=== PATIENT | female | born 1975 | race African-American/Black ===

== ENCOUNTER 2020-10-18 11:47 | Inpatient (IN) | payer OTHER ==
[~2020-10-18] VITALS: Ht 180.3 cm; Wt 100.7 kg
[2020-10-18 12:05] VITALS: BP 120/65
[2020-10-18 12:35] LABS: HEMATOCRIT 34.8 % (37.0-47.0); HEMOGLOBIN 11.9 gm/dL (12.0-15.0); MCH 30.5 pg (26.0-34.0); MCHC 34.3 g/dL (28.0-37.0); MPV 7.6 fl. (7.2-11.1); NUCLEATED RBCS 0 /100WBC; PLATELET COUNT* 278 thou/uL (150-400); RBC 3.91 mil/uL (4.20-5.00); RDW-CV 12.8 % (10.5-14.5); WBC 10.3 thou/uL (4.0-11.0)
[2020-10-18 12:46] LABS: CALCIUM 7.4 mg/dL (8.5-10.1); POTASSIUM 3.1 mmol/L (3.5-5.1)
[2020-10-18 12:55] LABS: ALBUMIN 2.4 g/dL (3.4-5.0); MAGNESIUM 1.4 mg/dL (1.8-2.4); TOTAL BILIRUBIN 0.4 mg/dL (<0.1-1.0); TOTAL PROTEIN 7.2 g/dL (6.4-8.2)
[2020-10-18 12:57] LABS: APTT 36.5 Seconds (25.0-31.3); PROTIME 10.3 Seconds (9.20-11.50)
[2020-10-18 12:59] LABS: ABSOLUTE LYMPHOCYTES 0.8 thou/uL (0.8-5.3); ABSOLUTE MONOCYTES 0.2 thou/uL (0.0-1.2); ABSOLUTE NEUTROPHILS 9.3 thou/uL (1.6-8.1)
[2020-10-18 13:00] LABS: ANISOCYTOSIS 1+; PLATELET ESTIMATE ADEQUATE; POIKILOCYTOSIS 1+
[2020-10-18 16:48] LABS: BE -2.6 mmol/L (-2 to +3); PCO2 26.7 mmHg (35.0-45.0); pH 7.483 (7.340-7.450)
[2020-10-18 16:50] LABS: PO2 55.2 mmHg (75.0-100.0)
[2020-10-18 17:05] VITALS: BP 146/85
[2020-10-18 20:45] VITALS: BP 137/75
[2020-10-18 21:30] VITALS: BP 148/86
[2020-10-18] MEDS ORDERED: AMITRIPTYLINE H75 M1 PO (23:10)
[2020-10-19 04:00] VITALS: BP 138/81
--- NOTE | 2020-10-19 06:56 | NUR ---
PATIENT ARRIVED ON FLOOR FROM THE ER AT ABOUT 2100. PATIENT ADMISSION HISTORY AND ASSESSMENT WAS COMPLETED CHARTED. PATIENT WAS ON 5L PER NASAL CANNULA UPON ARRIVAL TO FLOOR BUT IS NOW ON 9L HFNC. IV REMAINS SALINE LOCKED. WILL CONTINUE TO MONITOR.
[2020-10-19 07:55] VITALS: BP 138/81
--- NOTE | 2020-10-19 09:04 | EKG ---
[place] [address] ELECTROCARDIOGRAM REPORT Name: MELVIN FERNANDES Room: [address] IN ..#: [id number] Admission: 10/18/20 Attend Phys: Jean Eden Discharge: Date of : 73 Date of Service: 10/18/20 1232 Report #: [id number] THIS REPORT FOR: //name// [facility] ED Test Date: 2020-10-18 Test Time: 12:32:46 Pat Name: MELVIN FERNANDES Department: Room: [facility] Gender: F Match Up Person: TDS : 1975 Requested By: Beto Layne Order Number: [id number] MD: Freddie Duarte Measurements Intervals [place] Rate: 105 P: 33 ND: 162 QRS: -34 QRSD: 105 T: 23 QT: 341 QTc: 451 Interpretive Statements Sinus tachycardia Abnormal R-wave progression, early transition Left ventricular hypertrophy No previous ECG available for comparison Electronically Signed On 10-19-2020 9:04:11 GLASS DEPOSITION TENDER by Freddie Duarte [email or web address] <ELECTRONICALLY SIGNED> By: Gavin Duarte MD, [facility] 10/19/20 0904 1232 1232 F. Freddie Duarte MD, [facility] /EPI
[2020-10-19 09:10] LABS: MCH 30.3 pg (26.0-34.0); MCHC 34.3 g/dL (28.0-37.0); MCV 88.5 fL (80.0-100.0); MPV 7.4 fl. (7.2-11.1); RBC 3.96 mil/uL (4.20-5.00); RDW-CV 12.9 % (10.5-14.5)
[2020-10-19 09:16] LABS: CALCIUM 7.7 mg/dL (8.5-10.1); POTASSIUM 3.3 mmol/L (3.5-5.1)
--- NOTE | 2020-10-19 14:46 | NUR ---
ATTEMPTED TO CALL PT.ON HER CELL PHONE. IT WENT TO . LEFT HER A SHORT MESSAGE INTRODUCING CM AND LEFT MY PHONE NUMBER IF SHE HAD ANY QUESTIONS ABOUT CM OR QUESTIONS IN GENERAL. WILL TRY AGAIN TOMORROW TO CONTACT HER.
[2020-10-19 16:33] VITALS: BP 143/81
--- NOTE | 2020-10-19 19:17 | NUR ---
PT A&OX4 VSS. PT ON 9L 02 BY SAMANTA. PT UP AD CARLIN. SLIDING SCALE INSULIN ADMINISTERED THIS EVENING. IV TO LFA NO LONGER PATENT, IV DC'D AND PT WAITING FOR NEW ACCESS TO CONTINUE IV MEDS. NOC SHIFT AWARE. PT MOTHER UPDATED BY PHONE. PT PROVIDED LUNCH FROM FAMILY. PT RESTING IN ROOM WITH CALL LIGHT IN REACH, WILL CONTINUE TO MONITOR.
[2020-10-19 20:40] VITALS: BP 149/80
[2020-10-19 22:07] LABS: BE -2.1 mmol/L (-2 to +3); PCO2 30.2 mmHg (35.0-45.0); pH 7.454 (7.340-7.450)
[2020-10-19 22:09] LABS: PO2 57.1 mmHg (75.0-100.0)
[2020-10-20] VITALS: BP 164/87
--- NOTE | 2020-10-20 00:51 | NUR ---
ASSESSMENT DOCUMENTED. MEDS GIVEN PER E-MAR. NEW IV STARTED. PT FOUND WITH O2 SAT OF 82% ON 15L HIGH FLOW CANULA, PT PLACED ON NON-REBREATHER WITH 15L HIGH FLOW CANULA. RAPID RESPONSE CALLED. PT MOVED TO ROOM 115. ORDERS RECIEVED.
[2020-10-20 02:41] LABS: INFLUENZA A ANTIGEN Negative (Negative); INFLUENZA B ANTIGEN Negative (Negative)
[2020-10-20 04:00] VITALS: BP 142/87
[2020-10-20 05:02] LABS: ABSOLUTE BASOPHILS 0.1 thou/uL (0.0-0.2); ABSOLUTE LYMPHOCYTES 0.8 thou/uL (0.8-5.3); ABSOLUTE MONOCYTES 0.6 thou/uL (0.0-1.2); ABSOLUTE NEUTROPHILS 16.9 thou/uL (1.6-8.1); BASOPHILS 0.3 %; HEMOGLOBIN 11.6 gm/dL (12.0-15.0); LYMPHOCYTES 4.5 %; MCH 29.5 pg (26.0-34.0); MCHC 33.1 g/dL (28.0-37.0); MONOCYTES 3.4 %; NUCLEATED RBCS 0 /100WBC; PLATELET COUNT* 412 thou/uL (150-400); POLYS 91.8 %; RBC 3.93 mil/uL (4.20-5.00); RDW-CV 13.1 % (10.5-14.5); WBC 18.4 thou/uL (4.0-11.0)
[2020-10-20 05:31] LABS: ALBUMIN 2.2 g/dL (3.4-5.0); CALCIUM 8.5 mg/dL (8.5-10.1); MAGNESIUM 2.9 mg/dL (1.8-2.4); POTASSIUM 4.1 mmol/L (3.5-5.1); TOTAL BILIRUBIN 0.3 mg/dL (<0.1-1.0); TOTAL PROTEIN 6.7 g/dL (6.4-8.2)
--- NOTE | 2020-10-20 06:50 | NUR ---
RECEIVED REPORT FROM ALONSO MEDINA AT 0130. PT VOICED NO CONCERNS THIS SHIFT, CONTINUES ON 1UPPER [facility] THIS SHIFT. HOURLY ROUNDING COMPLETED. CALL LIGHT WITHIN REACH.
[2020-10-20 09:36] LABS: BE -2.3 mmol/L (-2 to +3); PCO2 31.3 mmHg (35.0-45.0); pH 7.442 (7.340-7.450)
[2020-10-20 09:42] LABS: PO2 54.9 mmHg (75.0-100.0)
--- NOTE | 2020-10-20 11:00 | NUR ---
PT.ON 10L/O2 THIS AM. REVIEWED CHART AND DISCUSSED WITH NURSING. PT.IS NORMALLY INDEPENDENT. WORKS OUTSIDE THE HOME. NO USE OF DME. LIVES IN A HOUSE WITH HER CHILDREN. HAS A FIANCE AND MOM WHO ARE SUPPPORTIVE. CM WILL CONT TO FOLLOW.
[2020-10-20 12:06] VITALS: BP 141/88
--- NOTE | 2020-10-20 13:16 | EKG ---
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 : 1975 Requested By: Zach Welsh Order Number: [id number] Kushal MD: Deshaun Dash Measurements Intervals [place] Rate: 113 P: 41 CO: 137 QRS: -42 QRSD: 104 T: 24 QT: 324 QTc: 445 Interpretive Statements Sinus tachycardia Left anterior fascicular block Abnormal R-wave progression, early transition Left ventricular hypertrophy Baseline wander in lead(s) V1,V2,V3,V5 Compared to ECG 10/18/2020 12:32:46 Left anterior fascicular block now present Electronically Signed On 10-20-2020 13:15:56 SUBSTANCE ABUSE THERAPIST by Deshaun Dash [email or web address] <ELECTRONICALLY SIGNED> By: Deshaun Dash MD, [facility] 10/20/20 1315 39 39 Deshaun Dash MD, [facility] /EPI
--- NOTE | 2020-10-20 19:38 | NUR ---
PT A&OX4 VSS. PT REMAINS ON ISO PRECAUTIONS. PT REMAINS ON 10L O2 HIFLOW. IV TO R HAND PATENT, DRESSING C/D/I. PT UP TO BATHE THIS SHIFT, LINENS CHANGED. FRESH CLOTHING FROM HOME DELIVERED BY SIG OTHER. PT AD CARLIN TO BSC, PT REMAINS CONTINENT OF B/B. PT RESTS IN ROOM WITH CALL LIGHT IN REACH. WILL CONTINMUE TO MONITOR
[2020-10-20 20:00] VITALS: BP 149/85
[2020-10-21] VITALS (9 sets, daily range): BP systolic 136–181; BP diastolic 85–98
--- NOTE | 2020-10-21 05:06 | NUR ---
PT SLEPT MOST OF SHIFT. ASSESSMENT DOCUMENTED. MEDS GIVEN PER E-MAR. IV PATENT. TYLENOL GIVEN FOR HEADACHE. PLASMA GIVEN, NO NOTED REACTION. PT ON 7L NC THIS SHIFT.
[2020-10-21 05:11] LABS: ABSOLUTE LYMPHOCYTES 0.7 thou/uL (0.8-5.3); ABSOLUTE MONOCYTES 0.6 thou/uL (0.0-1.2); ABSOLUTE NEUTROPHILS 13.6 thou/uL (1.6-8.1); BASOPHILS 0.1 %; HEMATOCRIT 34.1 % (37.0-47.0); HEMOGLOBIN 11.4 gm/dL (12.0-15.0); LYMPHOCYTES 4.8 %; MCH 29.6 pg (26.0-34.0); MCHC 33.4 g/dL (28.0-37.0); MCV 88.6 fL (80.0-100.0); MONOCYTES 3.9 %; MPV 6.8 fl. (7.2-11.1); NUCLEATED RBCS 0 /100WBC; PLATELET COUNT* 445 thou/uL (150-400); POLYS 91.2 %; RBC 3.85 mil/uL (4.20-5.00); RDW-CV 13.1 % (10.5-14.5); WBC 14.9 thou/uL (4.0-11.0)
[2020-10-21 05:29] LABS: ALBUMIN 2.2 g/dL (3.4-5.0); CALCIUM 7.8 mg/dL (8.5-10.1); CREATININE 0.9 mg/dL (0.6-1.3); MAGNESIUM 2.3 mg/dL (1.8-2.4); POTASSIUM 3.8 mmol/L (3.5-5.1); TOTAL BILIRUBIN 0.3 mg/dL (<0.1-1.0); TOTAL PROTEIN 7.2 g/dL (6.4-8.2)
--- NOTE | 2020-10-21 16:58 | NUR ---
PATIENT WAS ANXIOUS AND HAD LOTS OF QUESTIONS FOR STAFF AFTER DR. CANCINO ROUNDED ON PATIENT THIS AM. CTA/VENOUS DOPPLER ORDERED AND RESULTS SENT TO DR. CANCINO, NEGATIVE FOR CLOTS. IV STARTED TO RIGHT AC FOR CT. CONVALESCENT PLASMA INFUSED THIS AFTERNOON ORDERED, DR. CANCINO NOTIFIED OF ELEVATED YANETH AFTER PLASMA FININSHED AND NO NEW ORDERS RECEIVED. NO COMPLAINTS OF PAIN THIS SHIFT. PATIENT ON 10L HF, ATTEMPTED TO WEAN PATIENT DOWN TO 8L NC BUT PATIENT DESATTED WITH ACTIVITY SO RT PLACED PATIENT BACK ON 10L. ONE TIME DOSE LASIX GIVEN ORDERED, PATIENT UP MULTIPLE TIMES TO VOID. INSULIN GIVEN WITH MEALS ORDERED. CXR IN AM.
[2020-10-22] VITALS: BP 159/85
--- NOTE | 2020-10-22 00:36 | NUR ---
PT TITRATED TO 13LPM. PT 91%. PT REFUSES A BIPAP AT THIS TIME.
[2020-10-22 04:00] VITALS: BP 165/99
--- NOTE | 2020-10-22 04:10 | NUR ---
PT A&OX4, PT VSS ON 10L HIGH FLOW WHEN AWAKE. OXYGEN DESTATED TO MID 80s WHEN FELL ASLEEP, INCREASED O2 TO 13L - SAT 87-89%, PT PLACED ON BIPAP AT 0135 INCREASING O2 SAT TO 96-97% - PT REQUESTED REMOVAL OF BIPAP AT APPROX 0345, PT PRESENTLY ON 13L HIGH FLOW NC WITH O2 SAT LOW 90s WITH CAPNO IN USE. WILL CONTINUE TO MONITOR.
[2020-10-22 04:47] LABS: HEMATOCRIT 37.8 % (37.0-47.0); HEMOGLOBIN 12.8 gm/dL (12.0-15.0); MCH 30.2 pg (26.0-34.0); MCHC 33.8 g/dL (28.0-37.0); MCV 89.3 fL (80.0-100.0); MPV 6.8 fl. (7.2-11.1); NUCLEATED RBCS 0 /100WBC; PLATELET COUNT* 471 thou/uL (150-400); RBC 4.23 mil/uL (4.20-5.00); RDW-CV 13.2 % (10.5-14.5); WBC 12.6 thou/uL (4.0-11.0)
[2020-10-22 04:59] LABS: ALBUMIN 2.5 g/dL (3.4-5.0); MAGNESIUM 2.3 mg/dL (1.8-2.4); POTASSIUM 3.5 mmol/L (3.5-5.1); TOTAL BILIRUBIN 0.4 mg/dL (<0.1-1.0); TOTAL PROTEIN 7.9 g/dL (6.4-8.2)
[2020-10-22 06:17] LABS: ABSOLUTE LYMPHOCYTES 1.6 thou/uL (0.8-5.3); ABSOLUTE MONOCYTES 0.4 thou/uL (0.0-1.2); ABSOLUTE NEUTROPHILS 10.6 thou/uL (1.6-8.1)
[2020-10-22 06:18] LABS: PLATELET ESTIMATE ADEQUATE
[2020-10-22 08:00] VITALS: BP 167/93
--- NOTE | 2020-10-22 08:00 | NUR ---
ASSUMED CARE OF PATIENT THIS MORNING FROM NIGHT NURSE. PT IS ANXIOUS AND WAS GIVEN EXTENSIVE EDUCATION ON POC. WILL CONTINUE TO MONITOR CLOSELY. ALL LIGHT IN REACH.
[2020-10-22 12:17] VITALS: BP 175/100
[2020-10-22 16:00] VITALS: BP 179/106
[2020-10-22 20:00] VITALS: BP 166/97
[2020-10-22 23:28] LABS: URINE BILIRUBIN NEGATIVE (Negative); URINE BLOOD NEGATIVE (Negative); URINE CLARITY CLEAR; URINE COLOR YELLOW; URINE GLUCOSE-RANDOM NEGATIVE (Negative); URINE KETONES NEGATIVE (Negative); URINE LEUKOCYTES-REFLEX NEGATIVE (Negative); URINE NITRITE-REFLEX NEGATIVE (Negative); URINE PROTEIN NEGATIVE (Negative); URINE UROBILINOGEN 0.2 E.U./dl (0.2-1.0)
[2020-10-23] VITALS: BP 144/87
[2020-10-23 04:00] VITALS: BP 182/105
[2020-10-23 05:22] LABS: HEMATOCRIT 38.7 % (37.0-47.0); HEMOGLOBIN 12.9 gm/dL (12.0-15.0); MCHC 33.5 g/dL (28.0-37.0); MCV 89.7 fL (80.0-100.0); MPV 6.9 fl. (7.2-11.1); RBC 4.31 mil/uL (4.20-5.00); RDW-CV 13.2 % (10.5-14.5); WBC 13.1 thou/uL (4.0-11.0)
[2020-10-23 05:46] LABS: ALBUMIN 2.4 g/dL (3.4-5.0); CALCIUM 8.9 mg/dL (8.5-10.1); MAGNESIUM 2.4 mg/dL (1.8-2.4); POTASSIUM 4.1 mmol/L (3.5-5.1); TOTAL BILIRUBIN 0.4 mg/dL (<0.1-1.0); TOTAL PROTEIN 7.4 g/dL (6.4-8.2)
[2020-10-23 08:00] VITALS: BP 173/96
[2020-10-23 12:26] VITALS: BP 182/98
[2020-10-23 16:00] VITALS: BP 136/92
[2020-10-23 20:00] VITALS: BP 117/78
[2020-10-24] VITALS (7 sets, daily range): BP systolic 104–146; BP diastolic 65–96
--- NOTE | 2020-10-24 05:38 | NUR ---
ASSUMED PT CARE AT 1930. ASSESSMENT COMPLETED CHARTED. ABLE TO MAKE NEEDS KNOWN. UP AD CARLIN TO BSC. ON HEATED HIGH FLOW. RESTING IN BED AT THIS TIME. SEEMED IRRIATED WITH CARES BUT WAS PLEASENT TO STAFF. NO C/O PAIN OR DISCOMFORT. WILL CONTINUE TO MONITOR.
[2020-10-24 06:17] LABS: ABSOLUTE LYMPHOCYTES 1.1 thou/uL (0.8-5.3); ABSOLUTE MONOCYTES 0.7 thou/uL (0.0-1.2); BASOPHILS 0.1 %; HEMATOCRIT 38.2 % (37.0-47.0); HEMOGLOBIN 12.8 gm/dL (12.0-15.0); LYMPHOCYTES 7.7 %; MCHC 33.4 g/dL (28.0-37.0); MCV 89.6 fL (80.0-100.0); MONOCYTES 5.3 %; MPV 6.7 fl. (7.2-11.1); NUCLEATED RBCS 0 /100WBC; PLATELET COUNT* 393 thou/uL (150-400); POLYS 86.9 %; RBC 4.27 mil/uL (4.20-5.00); RDW-CV 12.9 % (10.5-14.5); WBC 13.9 thou/uL (4.0-11.0)
[2020-10-24 06:37] LABS: ALBUMIN 2.5 g/dL (3.4-5.0); CALCIUM 8.3 mg/dL (8.5-10.1); MAGNESIUM 2.3 mg/dL (1.8-2.4); POTASSIUM 3.8 mmol/L (3.5-5.1); TOTAL BILIRUBIN 0.4 mg/dL (<0.1-1.0); TOTAL PROTEIN 7.4 g/dL (6.4-8.2)
--- NOTE | 2020-10-24 08:00 | NUR ---
ASSUMED CARE OF PATIENT THIS MORNING FROM NIGHT NURSE. PT IS DOING WELL AND IS ABLE TO MAINTAIN HER 02 WITH SUPPLIMENTAL 02. PT WAS EDUCATED ON POC, FALL SAFETY AND USING THE CALL LIGHT FOR ASSISTANCE. HER BED IS IN THE LOWEST POSITION AND HER CALL LIGHT IS IN REACH. WILL CONTINUE TO MONITOR.
[2020-10-25] VITALS: BP 133/85
[2020-10-25 04:00] VITALS: BP 137/89
[2020-10-25 05:44] LABS: HEMATOCRIT 38.9 % (37.0-47.0); MCHC 33.3 g/dL (28.0-37.0); MCV 89.9 fL (80.0-100.0); MPV 6.9 fl. (7.2-11.1); RBC 4.33 mil/uL (4.20-5.00); RDW-CV 13.4 % (10.5-14.5); WBC 15.9 thou/uL (4.0-11.0)
[2020-10-25 06:05] LABS: ALBUMIN 2.5 g/dL (3.4-5.0); CALCIUM 8.2 mg/dL (8.5-10.1); CREATININE 1.1 mg/dL (0.6-1.3); MAGNESIUM 2.3 mg/dL (1.8-2.4); POTASSIUM 4.6 mmol/L (3.5-5.1); TOTAL BILIRUBIN 0.4 mg/dL (<0.1-1.0); TOTAL PROTEIN 7.4 g/dL (6.4-8.2)
--- NOTE | 2020-10-25 06:31 | NUR ---
ASSUMED PT CARE AT 1930. ASSESSMENT COMPLETED CHARTED. PT ON HIGH FLOW NC WITH NO SOA. UP AD CARLIN AROUND ROOM. NO C/O PAIN OR DISCOMFORT. RESTING IN BED MOST OF THE DAY. WANTING TO GO HOME. TOLD HER THAT SHE NEEDED HER O2 NEEDS BELOW 5. WORKING TOWARDS GOAL. WILL CONTINUE TO MONITOR.
--- NOTE | 2020-10-25 07:45 | CON ---
[address] [address] CONSULTATION Name: MELVIN FERNANDES Room: [address] IN M.R.#: [id number] Admission: 10/18/20 Attend Phys: King Richmond Discharge: Date of : 73 Report #: [id number] THIS REPORT FOR: //name// cc: Gonsalo Pino Vincent R. DO ~ DATE OF SERVICE: 10/20/2020 CONSULT REQUESTED BY: Jean Eden DO INDICATION FOR CONSULTATION: Pulmonary infiltrates. HISTORY OF PRESENT ILLNESS: A 45-year-old female. She has no significant past medical history. She had a negative COVID test around 10 days before admission. The patient had close contact with a family member that is her son who was positive for COVID-19. The patient now was having progressively increasing shortness of breath, cough, fever, chills, weakness, and fatigue. She has also had swelling of lower extremities. She presented to our hospital with these complaints. She also has been hypoxemic. Currently, requiring 10 liters of oxygen to maintain O2 saturation around 90%. She does have swelling of lower extremities as well. I came to see her yesterday; however, she was not in the room and I was not able to see her; however, I did review her records as well as a CAT scan. At that time, her PCR was pending; however, CT was highly consistent with COVID-19 and the patient was reported to be hypoxic. Therefore, I ordered remdesivir and I also replaced her electrolytes after reviewing records. I did subsequently see the patient today. She has a negative review of systems for 12 points except as mentioned above. PAST MEDICAL HISTORY: Left knee replacement. SOCIAL HISTORY: Lifetime nonsmoker, only occasional alcohol use. No known history of illegal drug use. ALLERGIES: There are no known drug allergies. FAMILY HISTORY: Son has COVID-19. Father of colon cancer at the age of 54. PHYSICAL EXAMINATION: GENERAL: She is short of breath at rest. VITAL SIGNS: Has a pulse of 105 and a blood pressure of 141/88, saturating 90% on 10 liters oxygen via a green high flow nasal cannula, respiratory rate was around 20, afebrile with a temperature of 36.8. [place] [address] CONSULTATION Name: MELVIN FERNANDES Stewart Room: [address]#: [id number] Admission: 10/18/20 Attend Phys: King Richmond Discharge: Date of : 73 Report #: [id number] HEENT: Head is normocephalic and atraumatic. NECK: Does not show raised JVP, asymmetry, mass or lymph nodes. CHEST: Symmetrical expansion on inspection. On auscultation, breath sounds bilaterally equal. No added sounds. HEART: Regular, no murmur. ABDOMEN: Soft and nontender. EXTREMITIES: Lower extremities show 2+ edema bilaterally, no calf tenderness. SKIN: Dry and intact. NEUROLOGICAL: Moves all extremities bilaterally equally and spontaneously with no focal deficit identified. LABORATORY DATA: The patient's lab work as well as chest x-rays and CT are in [facility] and these are reviewed. See also discussion above. ASSESSMENT AND PLAN: 1. Acute hypoxemic respiratory failure secondary to COVID-19. I will continue to titrate oxygen. 2. COVID-19. Started remdesivir yesterday. She already is on Solu-Medrol as well, which we will continue. Follow LFTs while on remdesivir. His 1 unit of convalescent plasma ordered by Dr. Lara. I agree with this. Unless there is significant improvement in the patient's condition, I will be inclined to give him one more unit of convalescent plasma tomorrow. 3. Pulmonary infiltrates. Agree with covering for secondary bacterial infection as well. The patient is currently on azithromycin as well as ceftriaxone and I would continue the same. 4. Edema of lower extremities/fluid overload. I recommend diuresing her. We will also check a D-dimer with tomorrow morning's labs. If the edema persists and D-dimer is elevated, then I will be inclined to obtain venous Dopplers tomorrow. Note that her head CT was done with contrast, but not with PE protocol. In case D-dimer is elevated, then I will consider reviewing with the radiologist regarding whether a repeat CTA chest is necessary to rule out pulmonary emboli. 5. Deep venous thrombosis prophylaxis, Lovenox. 6. Clostridium difficile prophylaxis, Florastor. 7. Gastrointestinal prophylaxis, Pepcid. Thanks for this consultation. <ELECTRONICALLY SIGNED> By: Bill Taylor MD 10/25/20 0745 [id number] Taylor MD /nt
[2020-10-25 08:00] VITALS: BP 118/77
[2020-10-25 13:44] VITALS: BP 141/80
--- NOTE | 2020-10-25 14:00 | NUR ---
REMAINS ON HIGH O2 REQUIREMENTS. REMDESIVIR COMPLETED. IS ON CASE. WILL CONTINUE WITH CURRENT PLAN OF CARE.
[2020-10-25 18:40] VITALS: BP 159/92
[2020-10-25 22:00] VITALS: BP 117/71
[2020-10-26] VITALS: BP 128/67
[2020-10-26 04:00] VITALS: BP 166/97
--- NOTE | 2020-10-26 06:09 | NUR ---
ASSUMED CARE OF PT AFTER REPORT AT 1930. PT A&OX4. VSS. PHYSICAL ASSESSMENT COMPLETED AND CHARTED. PT ON O2 AT 9L HFNC. PT TRACING SR ON TELE. PT UPADLIB TO BSC. PT DENIES ANY PAIN. CALL LIGHT WITHIN REACH.
[2020-10-26 06:54] LABS: HEMATOCRIT 38.2 % (37.0-47.0); HEMOGLOBIN 12.5 gm/dL (12.0-15.0); MCH 29.6 pg (26.0-34.0); MCHC 32.8 g/dL (28.0-37.0); MCV 90.2 fL (80.0-100.0); NUCLEATED RBCS 0 /100WBC; PLATELET COUNT* 431 thou/uL (150-400); RBC 4.23 mil/uL (4.20-5.00); RDW-CV 13.1 % (10.5-14.5); WBC 18.1 thou/uL (4.0-11.0)
[2020-10-26 06:58] LABS: CALCIUM 8.7 mg/dL (8.5-10.1); CREATININE 1.1 mg/dL (0.6-1.3); MAGNESIUM 2.4 mg/dL (1.8-2.4); POTASSIUM 4.9 mmol/L (3.5-5.1)
[2020-10-26 08:00] VITALS: BP 107/62
[2020-10-26 08:33] LABS: ABSOLUTE LYMPHOCYTES 1.4 thou/uL (0.8-5.3); ABSOLUTE MONOCYTES 1.4 thou/uL (0.0-1.2); ABSOLUTE NEUTROPHILS 15.2 thou/uL (1.6-8.1); ANISOCYTOSIS 1+; PLATELET ESTIMATE INCREASED; POIKILOCYTOSIS 1+
[2020-10-26 12:18] VITALS: BP 112/64
[2020-10-26 16:12] VITALS: BP 122/70
[2020-10-26 20:00] VITALS: BP 107/51
[2020-10-27 00:08] VITALS: BP 133/76
[2020-10-27 04:20] VITALS: BP 157/56
--- NOTE | 2020-10-27 05:56 | NUR ---
ASSUMED CARE OF PT AFTER REPORT AT 1903. PT A&OX4. VSS. PHYSICAL ASSESSMENT COMPLETED AND CHARTED. PT ON O2 AT 4L NC. PT TRACING SR ON TELE. PT UPADLIB TO BSC. PT DENIES ANY PAIN. CALL LIGHT WITHIN REACH.
[2020-10-27 08:00] VITALS: BP 112/68
[2020-10-27 08:19] LABS: GLYCOHEMOGLOBIN (HGB A1C) 6.7
[2020-10-27] MEDS ORDERED: METOPROLOL TART25 MG PO (09:20)
[2020-10-27] MEDS ORDERED: MUCINEX600 MG PO (09:20)
[2020-10-27] MEDS ORDERED: PREDNISONE 10 M10 M1 PO (09:20)
[2020-10-27] MEDS ORDERED: BROVANA15 MCG/2 M INH (09:20)
[2020-10-27] MEDS ORDERED: PULMICORT0.5 MG/2 M INH (09:20)
[2020-10-27] MEDS ORDERED: NEBULIZER MISCELL (09:20)
[2020-10-27] MEDS ORDERED: ELIQUIS5 MG PO (09:20)
[2020-10-27 11:56] VITALS: BP 112/68
[2020-10-27 12:50] VITALS: BP 108/68
[2020-10-27 14:12] VITALS: BP 112/68
--- NOTE | 2020-10-27 15:46 | NUR ---
VS CHARTED, SR ON TELE, NC@4L, UP AD CARLIN, USING BEDSIDE COMMODE, REC DISCHARGE ORDERS, REVIEWED WITH PATIENT, TELE MONITOR AND IV REMOVED WITHOUT COMPLICATION, SCRIPTS AND CARE NOTES GIVEN, OXYGEN WITH PATIENT AND O2 GENERATOR DELIVERING TO HOME, BROVANA SCRIPT NEEDED PRIOR AUTH. SALINA Arana SUBMITTING FOR PRIOR AUTH. PATIENT TO CALL PHARMACY AND FOLLOW UP. PATIENT TAKEN IN WHEELCHAIR TO FRONT DOOR BY NURSING STAFF, PICKED UP BY FAMILY IN [place]
== END 2020-10-27 14:55 | disposition home or self-care (01) | DRG 177 ==
LOC: M.ERS 11:47 → M.TBA-ER 13:37 → M.ORTHSURG 13:37
PROVIDERS: Family Medicine; Internal Medicine; Internal Medicine Critical Care Medicine; ADMIT Internal Medicine; ATTEND Internal Medicine
PROC: XW033E5 Introduction of Remdesivir Anti-infective into Peripheral Vein, Percutaneous Approach, New Technology Group 5 (ICD-10-PCS; principal; 2020-10-19)
PROC: 5A0935A Assistance with Respiratory Ventilation, Less than 24 Consecutive Hours, High Flow/Velocity Cannula (ICD-10-PCS; principal; 2020-10-19)
PROC: 5A0935A Assistance with Respiratory Ventilation, Less than 24 Consecutive Hours, High Flow/Velocity Cannula (ICD-10-PCS; 2020-10-20)
PROC: XW13325 Transfusion of Convalescent Plasma (Nonautologous) into Peripheral Vein, Percutaneous Approach, New Technology Group 5 (ICD-10-PCS; 2020-10-21)
PROC: 5A0935A Assistance with Respiratory Ventilation, Less than 24 Consecutive Hours, High Flow/Velocity Cannula (ICD-10-PCS; 2020-10-21)
PROC: 5A0935A Assistance with Respiratory Ventilation, Less than 24 Consecutive Hours, High Flow/Velocity Cannula (ICD-10-PCS; 2020-10-22)
PROC: 5A09357 Assistance with Respiratory Ventilation, Less than 24 Consecutive Hours, Continuous Positive Airway Pressure (ICD-10-PCS; 2020-10-22)
PROC: 5A0935A Assistance with Respiratory Ventilation, Less than 24 Consecutive Hours, High Flow/Velocity Cannula (ICD-10-PCS; 2020-10-23)
PROC: 5A0935A Assistance with Respiratory Ventilation, Less than 24 Consecutive Hours, High Flow/Velocity Cannula (ICD-10-PCS; 2020-10-24)
PROC: 5A0935A Assistance with Respiratory Ventilation, Less than 24 Consecutive Hours, High Flow/Velocity Cannula (ICD-10-PCS; 2020-10-25)
PROC: 5A0935A Assistance with Respiratory Ventilation, Less than 24 Consecutive Hours, High Flow/Velocity Cannula (ICD-10-PCS; 2020-10-26)
PROC: 5A0935A Assistance with Respiratory Ventilation, Less than 24 Consecutive Hours, High Flow/Velocity Cannula (ICD-10-PCS; 2020-10-27)
DX: U07.1 COVID-19 (principal); J12.89 Other viral pneumonia; J96.01 Acute respiratory failure with hypoxia; J15.6 Pneumonia due to other Gram-negative bacteria; E87.70 Fluid overload, unspecified; R60.0 Localized edema; I10 Essential (primary) hypertension; R73.9 Hyperglycemia, unspecified; Z96.652 Presence of left artificial knee joint; Z80.0 Family history of malignant neoplasm of digestive organs

== ENCOUNTER → 2021-03-09 | Outpatient (CLI) | payer OTHER ==
[~2021-03-09] MED LIST: AMITRIPTYLINE H75 M1 PO; BROVANA15 MCG/2 M INH; ELIQUIS5 MG PO; METOPROLOL TART25 MG PO; MUCINEX600 MG PO; NEBULIZER MISCELL; PREDNISONE 10 M10 M1 PO; PULMICORT0.5 MG/2 M INH
== END ==
LOC: M.RAD 10:09
PROVIDERS: ATTEND Nurse Practitioner Family
DX: Z12.31 Encounter for screening mammogram for malignant neoplasm of breast (principal)

== ENCOUNTER → 2021-09-26 | Outpatient (CLI) | payer OTHER | LOC: M.ULTRA 08:43 | PROVIDERS: ATTEND Family Medicine | DX: R94.4 Abnormal results of kidney function studies (principal) ==